=== PATIENT | male | born 1990 | race Caucasian/White ===

== ENCOUNTER 2023-07-02 01:39 | Emergency (ER) | payer MEDICAID ==
[~2023-07-02] VITALS: Ht 182.9 cm; Wt 77.1 kg
[2023-07-02 01:44] VITALS: BP_SYST 115; PULSE 106; RESP 16; TEMP 98.1; O2SAT 98
[2023-07-02 04:15] VITALS: BP_SYST 105; PULSE 86; RESP 18; TEMP 97.1; O2SAT 96
[2023-07-02] MEDS ORDERED: IPRATROPIUM BROM 0.5 MG/2.5 ML VIAL.NEB (ATROVENT) INH ONE (04:15)
[2023-07-02] MEDS ORDERED: cefTRIAXone 1 GM in D5W 50 ML IV ONE (04:15)
[2023-07-02] MEDS ORDERED: ALBUTEROL SULFATE 0.083% 2.5 MG/3 ML VIAL.NEB INH ONE (04:15)
== END 2023-07-02 04:15 | disposition home or self-care (01) ==
LOC: SED 01:39
DX: R22.0 Localized swelling, mass and lump, head (principal); Z79.899 Other long term (current) drug therapy
CPT/HCPCS: 99284

== ENCOUNTER 2023-10-02 01:35 | Emergency (ER) | payer MEDICAID ==
[~2023-10-02] VITALS: Ht 182.9 cm; Wt 74.8 kg
[2023-10-02 02:20] VITALS: BP_SYST 122; PULSE 94; RESP 19; TEMP 98; O2SAT 98
[2023-10-02] MEDS: cefTRIAXone 1 GM in LIDOCAINE 1%, 20 ML MDV 2.1 ML IM ONE (04:19)
[2023-10-02] MEDS ORDERED: CEPH-548 PO (05:16)
[2023-10-02 05:23] VITALS: BP_SYST 122; PULSE 94; RESP 19; TEMP 98; O2SAT 98
== END 2023-10-02 05:23 | disposition home or self-care (01) ==
LOC: SED 01:35
DX: L03.116 Cellulitis of left lower limb (principal); L03.115 Cellulitis of right lower limb; Z79.2 Long term (current) use of antibiotics
CPT/HCPCS: 99283; 96372; J0696; J2001